=== PATIENT | female | born 1985 | race Caucasian/White ===

== ENCOUNTER 2019-01-02 12:11 | Inpatient (IN) | payer OTHER ==
[~2019-01-02] VITALS: Ht 167.6 cm; Wt 97.1 kg
[2019-01-08 06:20] VITALS: BP 107/61; Ht 167.6 cm; Wt 97.1 kg
[2019-01-08] MEDS ORDERED: PRENAVITE1 TAB PO (06:20)
[2019-01-08 07:07] LABS: HEMATOCRIT 34.4 % (36.0-48.0); HEMOGLOBIN 11.5 g/dL (12-16); MCH 30.7 pg (26.0-34.0); MCHC 33.4 g/dL (31.0-37.0); MCV 91.7 fL (80.0-100.0); MEAN PLATELET VOLUME 11.2 fL (7.4-10.4); RBC 3.75 10x6/uL (4.00-5.40); RDW 14.3 % (11.5-14.5); WBC 14.1 10x3/uL (4.8-10.8)
[2019-01-09 07:33] LABS: RAPID PLASMA REAGIN Non Reactive (Non Reactive)
== END 2019-01-08 19:31 | disposition home or self-care (01) | DRG 833 ==
LOC: D.LD 01-08 05:18
PROVIDERS: ADMIT Obstetrics & Gynecology
PROC: 3E033VJ Introduction of Other Hormone into Peripheral Vein, Percutaneous Approach (ICD-10-PCS; principal; 2019-01-08)
DX: O24.419 Gestational diabetes mellitus in pregnancy, unspecified control (principal); Z3A.39 39 weeks gestation of pregnancy; O99.333 Smoking (tobacco) complicating pregnancy, third trimester

== ENCOUNTER 2019-01-11 05:25 | Inpatient (IN) | payer OTHER ==
[~2019-01-11] VITALS: Ht 167.6 cm; Wt 97.1 kg
[2019-01-11] VITALS (10 sets, daily range): BP systolic 109–134; BP diastolic 59–83; Ht 167.6 cm; Wt 97.1 kg
[~2019-01-11 05:25] MED LIST: PRENAVITE1 TAB PO
[2019-01-11 07:09] LABS: HEMATOCRIT 34.2 % (36.0-48.0); HEMOGLOBIN 11.5 g/dL (12-16); MCH 30.7 pg (26.0-34.0); MCHC 33.6 g/dL (31.0-37.0); MCV 91.2 fL (80.0-100.0); MEAN PLATELET VOLUME 11.2 fL (7.4-10.4); RBC 3.75 10x6/uL (4.00-5.40); RDW 14.4 % (11.5-14.5); WBC 12.1 10x3/uL (4.8-10.8)
[2019-01-11 07:20] LABS: APPEARANCE CLOUDY (CLEAR); BILIRUBIN NEGATIVE (NEGATIVE); COLOR YELLOW (YELLOW); GLUCOSE NEGATIVE (NEGATIVE); KETONE NEGATIVE (NEGATIVE); NITRITE NEGATIVE (NEGATIVE); PROTEIN NEGATIVE (NEGATIVE); UROBILINOGEN NORMAL (NORMAL)
[2019-01-11 07:21] LABS: BACTERIA MODERATE /hpf (NONE SEEN); MUCUS <1+ /lpf (NONE SEEN); RED CELLS - URINE OCC /hpf (0-5)
--- NOTE | 2019-01-11 08:03 | NUR ---
TIME OF 01/11/2019 AT 0808 BABY TRANSPORTED TO NURSERY WITH FATHER AND Giuliano GALINDO RN
--- NOTE | 2019-01-11 09:00 | NUR ---
FUNDUS FIRM AND MIDLINE
--- NOTE | 2019-01-11 09:25 | NUR ---
RECEIVED PT FROM RECOVERY ROOM, TO LABOR AND DELIVERY POST SECTION BY DR. PAGE. TRANSFERRED TO #[id number] BY BED WITH ASSISTANCE FROM NAOMI FALLON. PT HAS HAD SPINAL ANESTHESIA, AND IS ABLE TO MOVE BOTH LEGS, BUT WEAKNESS NOTED TO BOTH. PT HAS SCD'S ON. LARGE WHITE DRESSING NOTED OVER SECTION INCISION, WHICH HAS 3 PENCIL EARASER SIZE, PINK DRAINAGE. ABDOMEN PALPATES SOFT, PT DENIES NAUSEA OR SOB OR DIFFICULTY BREATHING. ICE PACK PLACED OVER GOWN TO INCISION. PT ENCOURAGED TO COUGH AND DEEP BREATHE, WITH PILLOW PLACED OVER ABDOMEN FOR COMFORT. SR UP X2, CALL LIGHT AND PHONE WITHIN REACH. FAMILY CALLED TO ROOM.
--- NOTE | 2019-01-11 10:00 | NUR ---
TO PT'S ROOM, FUNDUS FIRM, U/2, SMALL RUBRA LOCHIA, NO CLOTS NOTED. PT STATES "IT FEELS LIKE I AM BLEEDING QUITE A BIT". PERICARE DONE WITH WARM WET WASHCLOTHS, DEVAUGHN TOWELS/CHUX CHANGED. PT ABLE TO FULLY MOVE AND FEEL BOTH OF HER LEGS NOW. PT DENIES ALL OTHER NEEDS. SR UP X 2, CALL LIGHT AND PHONE WITHIN REACH.
--- NOTE | 2019-01-11 10:30 | NUR ---
TO ROOM, FUNDUS FIRM, U/1, SMALL RUBRA LOCHIA, NO CLOTS. ABDOMEN PALPATES SOFT. PT DENIES NAUSEA, SOB, OR DIFFICULTY BREATHING. PT USING INCENTIVE SPIROMETER WELL, AND COUGHING AND DEEP BREATHING EXERCISES WELL. PT'S POSITION CHANGED FROM HER BACK TO HER LEFT TILT. PILLOW PLACED UNDER BACK FOR SUPPORT AND COMFORT. PT SERVED ICE WATER TO DRINK, AND DENIES ALL OTHER NEEDS AT THIS TIME.
--- NOTE | 2019-01-11 12:00 | NUR ---
PT CALLS OUT SIGNAL WORKER HELPER LIGHT AND STATES "I THINK I'M CONSTANTLY PEEING". MALLORY CATH DRAINING LIGHT YELLOW URINE, WITH TOTAL OF 600 MLS IN MALLORY BAG.
--- NOTE | 2019-01-11 15:00 | NUR ---
PT CALLS OUT CORPORATE ADMINISTRATOR LIGHT TO BE CLEANED, STATES SHE FEELS VAGINAL BLEEDING. THIS RN TO ROOM. PT STATES SHE FELT "A LOT" OF VAGINAL BLEEDING. PERIPAD CHECKED AND NOTED TO HAVE SCANT TO SMALL AMT RUBRA LOCHIA, NO CLOTS. PAD SHOWN TO PT, PT REASSURED. PERICARE DONE. NEW ICE PACK TO ABD INCISION. PT ENCOURAGED TO CONTINUE COUGH AND DEEP BREATHING, UNDERSTANDING VERBALIZED. PT DENIES FURTHER NEEDS. SRUx2, CL IN REACH. PT FAMILY AT BEDSIDE.
--- NOTE | 2019-01-11 15:30 | NUR ---
TO PT'S ROOM, PT IS LYING ON HER RIGHT SIDE, RESTING WITH EYES CLOSED, PT AWAKENS, DENIES PAIN OR NEEDS. PT DENIES NEEDING TORADOL, STATES "I REALLY LIKE THIS DILAUDID, IT IS WORKING WELL". PT DENIES ALL OTHER NEEDS AT THIS TIME. SR UP X2, CALL LIGHT AND PHONE WITHIN REACH.
--- NOTE | 2019-01-11 18:00 | NUR ---
THIS RN TO BEDSIDE. PT SITTING IN HIGH ARTEAGA'S. NO COMPLAINTS AT THIS TIME. PT QUESTIONS WHEN SHE WILL BE ABLE TO GET AND WALK. PT INFORMED ORDERS WILL HAVE TO BE OBTAINED FROM DR PAGE. PT VERBALIZES UNDERSTANDING. PT ALSO QUESTIONS WHEN SHE CAN HAVE A NICOTINE PATCH. THIS RN TO OBTAIN ORDER. APPROX 250ML NOTED IN UROMETER. TOTAL OF 800ML URINE EMPTIED FROM MALLORY. SPLINT PILLOW PROVIDED W/TEACHING. PT ENCOURAGED TO PUSH HER COMPLEX MANAGER BUTTON PRIOR TO MOVING AND CONTINUE TO REPOSITION FREQUENTLY IN BED. PT AGREEBLE. NO NEEDS VOICED AT THIS TIME.
--- NOTE | 2019-01-11 19:47 | NUR ---
ASSESSMENT PER FLOW SHEET, VS OBTAINED, IV IN RIGHT HAND INTACT WITH NO REDNESS OR EDEMA INFUSING VIA PUMP NS WITH PITOCIN AT 125 ML/HR, DILAUDID ACADEMIC SERVICES COORDINATOR TO DELIVER 0.2MG/10MINS FOR PAIN MANAGEMENT, PT RATES INC PAIN 2/10, PT INST ON AND VERBALIZES UNDERSTANDING OF ACADEMIC SERVICES COORDINATOR, FF, ML, U/1, LIGHT BLEEDING NOTED WITH NO CLOTS, PINK PAD AND BLUE CHUX CHANGED DUE TO BUNCHING UP UNDERNEATH PT, BIKINI LINE INC WITH SMALL DRESSING INTACT, DRIED DRAINAGE NOTED AND OUTLINED, MALLORY CATH INTACT DRAINING CLEAR YELLOW URINE, PT REPORTS FLATUS, SCD'S ON AND WORKING PROPERLY, FRESH ICE PACK PLACED, PT DENIES FURTHER NEEDS, FOB HOLDING BABY
--- NOTE | 2019-01-11 20:22 | NUR ---
VIC AWAD, RN SPOKE TO DR PAGE REGARDING NICOTINE PATCH FOR PT, SHE REPORTS ORDERS RECEIVED
--- NOTE | 2019-01-11 20:28 | NUR ---
NEW BAG OF PITOCIN HUNG PER MD ORDERS, SEE EMAR
--- NOTE | 2019-01-11 21:33 | NUR ---
PT BOTTLE FEEDING BABY, INFORMED PT THAT I WILL PLACE NICOTINE PATCH SOON I RECEIVE IT FROM THE PHARMACY, PT VERBALIZES UNDERSTANDING, DENIES NEEDS AT THIS TIME, FOB AT BEDSIDE
--- NOTE | 2019-01-11 22:03 | NUR ---
NICOTINE PLACED TO BACK OF UPPER LEFT SHOULDER PER MD ORDERS, PT REPORTS THAT SHE IS GOING TO GET SOME REST, INFORMED PT THAT I WILL LET HER SLEEP TILL AROUND 12:30 AM AND THAT I WILL BE IN TO DO VS AND DO DEVAUGHN CARE AT THAT TIME, PT VERBALIZES UNDERSTANDING, DENIES FURTHER NEEDS, FOB AT BEDSIDE
[2019-01-12 00:23] VITALS: BP 109/65
--- NOTE | 2019-01-12 00:23 | NUR ---
PT LABEL FOLDER LIGHT, INQUIRES ABOUT SCD'S, INFORMED PT THAT SHE HAD TO WEAR THEM TONIGHT BUT I WILL REMOVE THEM DURING VS AND DEVAUGHN CARE, SCD'S OFF, VS OBTAINED, MALLORY CATH EMPTIED, DEVAUGHN CARE DONE WITH WET WARM WASH CLOTHS, LITE BLEEDING NOTED WITH NO CLOTS, BLUE CHUX AND DEVAUGHN PAD CHANGED, FRESH ICE PACK TO ABD, PT DID COUGH DEEP BREATHE AND I.S. WITH GOOD EFFORT, PT USING FANCY PACKER INST, FRESH H20 SERVED, PT DENIES FURTHER NEEDS, SCD'S PLACED BACK ON AND WORKING PROPERLY, FOB ASLEEP ON COUCH, EARLENE CANDELARIO, NAOMI IN ROOM VISITING WITH PT
--- NOTE | 2019-01-12 02:10 | NUR ---
PT AWAKE, HOLDING BABY, DENIES NEEDS AT THIS TIME, FOB AT BEDSIDE
--- NOTE | 2019-01-12 03:00 | NUR ---
REPORT TO EARLENE CANDELARIO RN
[2019-01-12 04:15] VITALS: BP 104/56
--- NOTE | 2019-01-12 04:15 | NUR ---
NEW BAG NS WITH 20 UNITS PIT HUNG TO CONTINUE TO INFUSE AT 125 MLS/HR. I&O DONE, 1400 MLS CLEAR LIGHT YELLOW URINE EMPTIED FROM MALLORY. PERICARE DONE, PADS AND CHUX CHANGED. NEW ICE PACK PROVIDED PER REQUEST. NO NEW DRAINAGE NOTED FROM PREVIOUSLY MARKED AREA. FUNDUS FIRM, MIDLINE AND U2 WITH SCANT AMT RUBRA LOCHIA, NO CLOTS NOTED. INCENTIVE SPIROMETER USED AND COUGH DONE WITH GOOD EFFORT. PT POSITIONED TO RIGHT SIDE IN BED WITH PILLOW PLACED FOR COMFORT. ICE WATER PROVIDED PER PT REQUEST, DENIES ADDITIONAL NEEDS AT THIS TIME. TAR DISTILLATION SUPERVISOR BUTTON, CL, AND PHONE WITHIN REACH. UPPER SIDE RAILS RAISED X2, BED IN LOW POSITION. S/O RESTING ON COUCH AT BEDSIDE. WILL CONTINUE TO MONITOR AND ASSIST PRN.
--- NOTE | 2019-01-12 06:21 | NUR ---
FSBS 73, REPORTED TO DR. PAGE. C/O INCISIONAL PAIN 04/23, "FEELS LIKE A BRUISE AND SORE." REPORTS THAT RN TRAUMA DECREASES PAIN AND STOPS BURNING AND STINGING. DISCUSSED INTERVENTIONS WITH HER, REQUESTS TORADOL, GIVEN SLOW IVP. EDUCATED ON MED, VERBALIZES UNDERSTANDING AND DENIES QUESTIONS. SPOUSE REMAINS AT BEDSIDE, SUPPORTIVE AND ATTENTIVE TO PT AND HER NEEDS. BED IN LOW POSITION WITH UPPER SIDE RAILS RAISED X2. CALL LIGHT AND PHONE WITHIN REACH. WILL CONTINUE TO MONITOR AND ASSIST PRN.
[2019-01-12 06:51] LABS: BASOPHILS 0.2 % (0-2); EOSINOPHILS 1.2 % (0-7); HEMATOCRIT 31.1 % (36.0-48.0); HEMOGLOBIN 10.1 g/dL (12-16); IMMATURE GRANULOCYTES 0.2 % (0-5); LYMPHOCYTES 16.3 % (15-50); MCH 29.7 pg (26.0-34.0); MCHC 32.5 g/dL (31.0-37.0); MCV 91.5 fL (80.0-100.0); MEAN PLATELET VOLUME 10.5 fL (7.4-10.4); MONOCYTES 6.3 % (2-11); NEUTROPHILS 75.8 % (40-80); RDW 14.6 % (11.5-14.5); WBC 12.2 10x3/uL (4.8-10.8)
[2019-01-12 07:17] LABS: PLATELET COUNT 196 10x3/uL (130-400)
[2019-01-12 07:29] LABS: RAPID PLASMA REAGIN Non Reactive (Non Reactive)
[2019-01-12 08:06] VITALS: BP 107/60
--- NOTE | 2019-01-12 08:06 | NUR ---
RCVD PT FROM PM SHIFT. PT LYING ON BACK WITH HOB 25 DEGREES. PT RATES PAIN 3/10 AND TOLERABLE. DISCUSSED POC TO D/C MALLORY CATH TODAY AFTER MD MAKES ROUNDS AND NEED FOR AMBULATION AFTER THAT. PT VERBALIZED UNDERSTANDING TO TEACHING PROVIDED. PT IS AAOX3, HR-RRR, PPP, BREATH SOUNDS CLEAR AND UNLABORED X2. BOWEL SOUNDS ACTIVE X4. FUNDUS FIRM, ML, U/2. NO CLOTS EXPRESSED ON MASSAGE. LOW TRANSVERSE INCISION WITH LARGE PRIMAPORE DRESSING C/D/I WITH OLD DRAINAGE NOTED TO BE MARKED, HAS NOT INCREASED IN SIZE SINCE IT WAS MARKED. SCD'S IN PLACE BILATERALLY AND CONNECTED TO PUMP, PUMP FUNCTIONING PROPERLY. PIV NOTED TO RT HAND WITH NS WITH 20 U PITOCIN INFUSING AT 125ML/HR. DILAUDID OVERLOCK WAISTLINE JOINER IN PLACE AND PT REPORTS IT IS CONTROLLING HER PAIN WELL. PT WAS ADVANCED TO REGULAR DIET PER Jadyn GAR RN. PT DENIES ANY FURTHER NEEDS AT THIS TIME. BED LOW, WHEELS LOCKED, SIDE RAILS UP X2, CALL LIGHT AND PHONE WITHIN REACH.
--- NOTE | 2019-01-12 09:52 | NUR ---
PT CALLS OUT DIRECTOR VALIDATION LIGHT SAYING "I NEED HELP." RN TO BEDSIDE. SIXTO, CASH REGISTER MECHANIC IN ROOM TALKING WITH PT. PT STATED SHE WAS HAVING A HARD TIME POSITIONING FOR FEEDING DUE TO THE INFANT'S BROKEN CLAVICAL. SIXTO ASSISTS PT. PT DENIES FURTHER NEEDS AT THIS TIME.
--- NOTE | 2019-01-12 10:20 | NUR ---
Reyna De Santiagokellie 01/12/19 S: Patient states she just found out baby has a broken shoulder bone and she is so nervous with how she holds him. She was trying to breastfeed but plans on giving in formula because she doesn't want to hold baby in a certain way. She will try him tomorrow. O: Patient sitting up in bed feeding infant a bottle. Family members in room. Validated client concerns and request. There are ways that you can hold that won't cause more pain to his shoulder. Showed how to hold infant with different positions for . Encouraged patient to place infant skin to skin to help with baby led . This can help with infant initiation his self. Making sure infant latch is correct with every feeding will help prevent sore nipples. Educated patients on the benefits of skin to skin, breastmilk composition, positions, how to verify infant if latched is correctly to the breast, position, the importance of practicing responsive feeding, and encouraged to ask for help as needed during hospital visit with . Breastfeed does take time practice, and patience in the beginning. It is normal for infant to want to nurse often 8-12 times in 24 hours to help with establishing your milk supply. Informed patient I just wanted to give her information about and we respect how she prefers to feed today. Please ask for help as needed with help with feeding . A: Patient providing infant formula today due to injury with infant. P:Ask for help as needed with feeding infant. Julienne Song, CLC
--- NOTE | 2019-01-12 12:00 | NUR ---
Called to room, pt requesting pads changed. Susanne care per this rn with warm wet wash cloths, fundus firm at u/u with light bleeding noted. Dr Rsaheed comes to room and removes bandage from bikini incision, incision clean and dry with ross in place. Canseco cath removed by md at this time with total of 700ml clear urine noted. Pt than able to move self to sitting up on side of bed, no nausea or dizziness. AMb to bathroom and voids without complaint. pads and brief with gown changed. Bed linens changed while she is in the bathroom. Back to bed per self and able to position self for comfort tilted to her left side. Rates pain at 3/10 but states wants to eat lunch before calling for pain med. side rails up x 2 with phone and call light in reach.
--- NOTE | 2019-01-12 15:56 | NUR ---
NORCO AND MOTRIN GIVEN PER ORDERS. SEE EMAR FOR ADMINISTRATION.
--- NOTE | 2019-01-12 16:06 | NUR ---
PT AMB IN HALLS, SLIGHTLY TEARFUL. ADV PT THAT I HAVE PAIN MEDICATIONS AND GAS X TO GIVE HER. PT AMB BACK TO ROOM. NORCO 10/325MG X1 TAB AND MOTRIN 600MG X1 TAB GIVEN TOGETHER PER PT REQUEST FOR PAIN RATED 9/10 AT THIS TIME. SIMETHICONE 160MG GIVEN FOR GAS PAIN. ADV PT TO ALLOW PAIN MEDICATIONS TO TAKE EFFECT AND THEN WALKT THE HALLS TO AID IN ALLEVIATION OF GAS PAINS. PT VERBALISED UNDERSTANDING. NO FURTHER NEEDS VOICED.
--- NOTE | 2019-01-12 16:21 | NUR ---
PT AMB IN HALLS. STEADY GAIT NOTED. PT STATES "I GOT A BUZZ OF ENERGY AND JUST DECIDED TO WALK." ADV PT SHE CAN AMB IN HALLS AND WAITING ROOM, BUT NOT TO WALK INTO THE HOSPITAL HALLWAYS. PT VERLBALIZED UNDERSTANDING.
--- NOTE | 2019-01-12 17:38 | NUR ---
PT AMB TO NURSE DESK. STEADY GAIT NOTED. PT REQUESTS SL BE D/C'D STATING "IT'S HURTING PRETTY BAD." SL D/C'D WITH CATH TIP INTACT. PRESSURE APPLIED TO SITE UNTIL BLEEDING SUBSIDED. BANDAID PLACED OVER SITE. PT TOLERATED WELL. NO FURTHER NEEDS VOICED AT THIS TIME.
--- NOTE | 2019-01-12 18:25 | NUR ---
PT AMB TO NURSE DESK REQUESTING TO TAKE A SHOWER. RN TO BEDSIDE. TOWELS AND WASH CLOTHS PROVIDED. ADV PT TO USE SHOWER CHAIR NEEDED. PT IS AGREEABLE AND DENIES FURTHER NEEDS.
--- NOTE | 2019-01-12 18:42 | NUR ---
DEVAUGHN PADS PROVIDED, PT OUT OF SHOWER AND DRESSING, DENIES NEEDS AT THIS TIME.
[2019-01-12 19:29] VITALS: BP 109/73
--- NOTE | 2019-01-12 19:29 | NUR ---
SHIFT ASSESSMENT COMPLETED. PT REC'D SITTING UP IN CHAIR IN ROOM CONVERSING WITH VISITORS. PAIN 4/10 INCISIONAL BURNING AND STINGING, "SORENESS," AND ABD CRAMPING INTERMITTENTLY. DENIES NEED FOR INTERVENTION CURRENTLY. STEAY GAIT NOTED BACK TO BED. VSS. RESPIRATIONS REGULAR AND UNLABORED, BREATH SOUNDS CLEAR AND EQUAL BILATERALLY. BOWEL SOUNDS PRESENT AND ACTIVE X4, REPORTS THAT SHE BEGAN PASSING FLATUS FOLLOWING RECEIVING SIMETHICONE TABS EARILER ON DAY SHIFT. REPORTS VOIDING WITHOUT DIFFICULTY AND DENIES PASSING CLOTS. FUNDUS FIRM, MIDLINE AND U2 WITH SCANT RUBRA LOCHIA, NO CLOTS NOTED. SCD'S LEFT OFF PER PT REQUEST, STATES THAT SHE WANTS TO CONTINUE AMBULATING IN ROOM AND ON UNIT. LOWER TRANSVERSE ABD INCISION WELL APPROXIMATED WITH 18 ILSA INTACT, NO DRAINAGE OR S/S OF INFECTION NOTED. PERIPAD PLACED OVER INCISION AND PT INSTRUCTED ON S/S OF INFECTION AND INCISIONAL CARE, VERBALIZES UNDERSTANDING. BED IN LOW POSITION WITH UPPER SIDE RAILS RAISED X2. CALL LIGHT AND PHONE WITHIN REACH. WILL CONTINUE TO MONITOR AND ASSIST PRN.
--- NOTE | 2019-01-12 20:20 | NUR ---
C/O ABD CRAMPING AND INCISIONAL BURNING AND STINGING 03/23, REQUESTS NORCO, GIVEN PER REQUEST. REFUSED NICOTINE PATCH AT THIS TIME. REPORTS THAT SHE FEELS "GAS PAIN BUILDING AGAIN" AND REQUESTS SIMETHICONE, GIVEN PER REQUEST. REINFORCED FALL PREVENTION WITH PT AND SPOUSE AND KEEPING SOMEONE IN ROOM WHILE TAKING NARCOTICS TO ASSIST WITH PRN, VERBALIZES UNDERSTANDING AND DENIES QUESTIONS. ICE WATER PROVIDED. BED IN LOW POSITION WITH UPPER SIDE RAILS RAISED X2. CALL LIGHT AND PHONE WITHIN REACH. WILL CONTINUE TO MONITOR AND ASSIST PRN.
--- NOTE | 2019-01-12 20:47 | NUR ---
AMBULATORY IN [place] WITH FAMILY MEMBER. STEADY GAIT NOTED. DENIES DIZZINESS AND NEEDS.
--- NOTE | 2019-01-12 21:16 | NUR ---
NICOTINE PATCH APPLIED TO RIGHT UPPER ARM PER PT REQUEST. INITIALLY REFUSED PATCH, BUT STATES THAT SHE WOULD LIKE IT APPLIED NOW. PT EDUCATED ABOUT PATCH AND POSSIBLE SIDE EFFECTS, VERBALIZES UNDERSTANDING AND DENIES QUESTIONS. BED IN LOW POSITION WITH UPPER SIDE RAILS RAISED X2. BONDING WITH . DENIES NEEDS. PAIN CURRENTLY 2/10. WILL CONTINUE TO MONITOR AND ASSIST PRN.
--- NOTE | 2019-01-12 22:11 | NUR ---
C/O ABD CRAMPING, 01/21. REQUEST MOTRIN, GIVEN PER REQUEST AND ORDER. ICE WATER PROVIDED. DENIES ADDITIONAL NEEDS AT THIS TIME. SPOUSE AT BEDSIDE, SUPPORTIVE AND ATTENTIVE TO PT AND INFANT NEEDS. BED IN LOW POSITION WITH UPPER SIDE RAILS RAISED X2. CALL LIGHT AND PHONE WITHIN REACH. WILL CONTINUE TO MONITOR AND ASSIST PRN.
--- NOTE | 2019-01-12 23:00 | NUR ---
AMBULATORY IN [place], PAIN 1-12/24, DENIES NEED FOR ADDITIONAL INTERVENTION. STATES THAT PAIN IS DECREASED ONCE SHE IS UP AMBULATING. DENIES NEED. WILL CONTINUE TO MONITOR AND ASSIST PRN.
[2019-01-12 23:56] VITALS: BP 116/60
--- NOTE | 2019-01-12 23:56 | NUR ---
C/O PAIN 5/10 INCISIONAL BURNING AND STINGING. NORCO GIVEN PER ORDER. QUESTIONS REGARDING INCISIONAL CARE AND S/S OF INFECTION ANSWERED. VSS. FUNDUS REMAINS FIRM, MIDLINE AND U2 WITH SCANT AMT RUBRA LOCHIA, NO CLOTS NOTED. REQUEST SIMETHICONE, GIVEN PER REQUEST. ICE WATER PROVIDED. BED IN LOW POSITION WITH UPPER SIDE RAILS RAISED X2. CALL LIGHT AND PHONE WITHIN REACH. WILL CONTINUE TO MONITOR AND ASSIST PRN.
--- NOTE | 2019-01-13 00:58 | NUR ---
RESTING WITH EYES CLOSED IN SEMI FOWLERS POSITION. RESPIRATIONS REGULAR AND UNLABORED, NO S/S OF DISTRESS NOTED. BED IN LOW POSITION WITH UPPER SIDE RAILS RAISED X2. CALL LIGHT AND PHONE WITHIN REACH. WILL CONTINUE TO MONITOR AND ASSIST PRN.
--- NOTE | 2019-01-13 02:24 | NUR ---
ROUNDS MADE. PT RESTING ON RIGHT SIDE WITH EYES CLOSED. RESPIRATIONS REGULAR AND UNLABORED WITH NO S/S OF DISTRESS NOTED. BED IN LOW POSITION WITH UPPER SIDE RAILS RAISED X2. CL AND PHONE WITHIN REACH.
--- NOTE | 2019-01-13 04:16 | NUR ---
VSS. 05/23 INCISIONAL BURNING, STINGING, AND "SORENESS." MOTRIN AND NORCO GIVEN PER REQUEST. FUNDUS REMAINS FIRM, MIDLINE AND U2 WITH SCANT RUBRA LOCHIA, NO CLOTS NOTED. ICE WATER PROVIDED. DENIES ADDITIONAL NEEDS. UP TO VOID. BED IN LOW POSITION WITH UPPER SIDE RAILS RAISED X2. CALL LIGHT AND PHONE WITHIN REACH. WILL CONTINUE TO MONITOR AND ASSIST PRN.
[2019-01-13 04:26] VITALS: BP 115/64
--- NOTE | 2019-01-13 05:03 | NUR ---
PAIN REASSESSMENT COMPLETED, 01/21. CURRENTLY BONDING WITH INFANT. ICE WATER PROVIDED. DENIES ADDITIONAL NEEDS. BED IN LOW POSITION WITH UPPER SIDE RAILS RAISED X2. CALL LIGHT AND PHONE WITHIN REACH.
--- NOTE | 2019-01-13 06:36 | NUR ---
ROUNDS MADE. PT BONDING WITH . DENIES NEEDS AT THIS TIME. SPOUSE AT BEDSIDE SUPPORTIVE AND ATTENTIVE TO PT AND HER NEEDS. BED IN LOW POSITION WITH UPPER SIDE RAILS RAISED X2. CALL LIGHT AND PHONE WITHIN REACH.
--- NOTE | 2019-01-13 07:30 | NUR ---
DR PAGE ON UNIT, RECEIVED VERBAL ORDER THAT PT MAY DISCHARGE WITH BABY.
[2019-01-13 08:00] VITALS: BP 119/66
--- NOTE | 2019-01-13 08:05 | NUR ---
PT IN HIGH FOWLERS POSITION HOLDING INFANT. PHYSICAL ASSESSMENT DONE, SEE SHIFT ASSESSMENT. FUNDUS FIRM AND MIDLINE. 2/U. LIGHT RUBRA LOCHIA. PT DENIES HEAVY BLEEDING OR PASSING CLOTS THROUGHOUT THE NIGHT. PFANNENSTIEL INCISION NOTED TO BE CLEAN DRY AND INTACT WITH ILSA. NO REDNESS, SWELLING OR WARMTH NOTED. BOWEL SOUNDS HYPERACTIVE X 4, ABD DISTENDED BUT SOFT TO TOUCH. PT REPORT TENDERNESS AND PASSING GAS MULTIPLE TIMES SINCE PROCEDURE. DISCUSSED AMBULATION, OPIOD EFFECTS ON GI SYSTEM, AND SIMETHICONE.
--- NOTE | 2019-01-13 08:15 | NUR ---
NORCO 10/325MG GIVEN PO PER PT REQUEST FOR PAIN. PT DENIES FURTHER NEEDS AT THIS TIME.
--- NOTE | 2019-01-13 09:00 | NUR ---
PT IN HIGH FOWLERS POSITION. PT DENIES PAIN BUT REPORTS "SWELLING AND WEIRD SENSATIONS" OF THE LEFT HAND, SPECIFICALLY THE AREA BETWEEN THE THUMB AND FIRST FINGER. AREA APPEARS SLIGHTLY REDDENED AND NOT WARM TO TOUCH. AREA OUTLINED AND WILL CONTINUE TO MONITOR.
--- NOTE | 2019-01-13 10:00 | NUR ---
DR TAYLOR ON UNIT AND TO PT ROOM TO ASSESS LEFT HAND. STATES THAT "IT DOES NOT LOOK INFECTIOUS". PT CONTINUES TO DENY ANY ITCHING AT SITE. PT DENIES PAIN OR FURTHER NEEDS AT THIS TIME.
[2019-01-13] MEDS ORDERED: HYDROCODON-ACE1 EA10 PO (10:33)
[2019-01-13] MEDS ORDERED: IBUPROFEN600 MG PO (10:34)
--- NOTE | 2019-01-13 11:00 | NUR ---
PT AMBULATING IN HALLWAY, DENIES PAIN OR NEEDS.
--- NOTE | 2019-01-13 11:55 | NUR ---
PT SITTING UP ON COUCH HOLDING ICE PACK TO LEFT HAND. AREA BETWEEN THUMB AND FIRST FINGER IS MORE RED AND MORE SWOLLEN THAN THIS AM. PT CONTINUES TO DENY PAIN OR ITCHING AT SITE. AREA FEELS THICKENED. LINENS CHANGED. TDAP VACCINE, RHOGAM INJECTIONS GIVEN, SEE EMAR. MOTRIN 600MG AND SIMETHICONE 120MG GIVEN PO FOR PAIN RATED 5/10 AT INCISION SITE AND CRAMPING. WRITTEN AND VERBAL DC INSTRUCTIONS GIVEN ALONG WITH PRESCRIPTIONS FOR MOTRIN AND NORCO 10/325MG. PT AND FOB VERBALIZE UNDERSTANDING OF ALL INSTRUCTIONS. ANSWERED QUESTIONS AT THIS TIME. PT REQUESTS BENADRYL FOR HAND AND NORCO FOR PAIN.
--- NOTE | 2019-01-13 12:25 | NUR ---
REPORT OF HAND SWELLING CALLED TO DR TAYLOR. ORDER RECEIVED TO GIVE BENADRYL 50MG PO AND TO PROCEED WITH DC.
--- NOTE | 2019-01-13 12:40 | NUR ---
NORCO 10/325MG AND BENADRYL 50MG GIVEN PO FOR PT RATING PAIN 5/10.
--- NOTE | 2019-01-13 13:30 | NUR ---
PT AMBULATING AROUND ROOM. PT RATES PAIN 2/10 AND REPORTS FEELING DROWSY. IN CRIB RESTING QUIETLY. PT DENIES FURTHER NEEDS AT THIS TIME.
--- NOTE | 2019-01-13 15:25 | NUR ---
REDNESS AND SWELLING MOSTLY GONE ON LEFT HAND. BB SIZE AREA BETWEEN THUMB AND FIRST FINGER REDDENED; BLOOD ACCUMULATING UNDER SKIN APPEARANCE, PT CONTINUES TO DENY ITCHING OR PAIN AT SITE. PT VERBALIZES READINESS FOR DISCHARGE. PT OFF UNIT VIA WHEELCHAIR TO PRIVATE VEHICLE. IN CARSEAT. FAMILY DENIES FURTHER QUESTIONS AT THIS TIME,
--- NOTE | 2019-01-15 13:48 | MORECARE ---
CASE MANAGEMENT DISCHARGE SUMMARY PATIENT: ISADORA VUONG UNIT: [id number] ADM DATE: 01/11/19 AGE: 33 : 85 SEX: F ROOM/BED: D.1278 AUTHOR: JOSE RAUL REYEZ PHYSICIAN: REFERRING PHYSICIAN: ALAN PAGE MD DATE OF SERVICE: 01/15/19 Discharge Plan Patient Name: ISADORA VUONG Facility: [facility]:[place] : 1985 Planned Disposition: Home Anticipated Discharge Date: 01/13/19 Discharge Date: 01/13/2019 Expected LOS: 2 Initial Reviewer: [email or web address] Initial Review Date: 01/11/2019 Generated: 01/15/19 2:48 pm Patient Name: ISADORA VUONG Page [id number] at 1348 All edits/amendments must be made on the electronic document DICTATION DATE: 01/15/19 1347 RN OCCUPATIONAL HEALTH: LATRELL 01/15/19 1347 RPT#: [id number] DC DATE:01/13/19 STATUS: DIS IN [facility] [address] [place] [address] END OF REPORT
== END 2019-01-13 15:30 | disposition home or self-care (01) | DRG 788 ==
LOC: D.LD 05:25 → D.SDCHOLD 07:30 → D.LD 01-13 15:30
PROVIDERS: ADMIT Obstetrics & Gynecology; ATTEND Obstetrics & Gynecology
PROC: 10D00Z1 Extraction of Products of Conception, Low, Open Approach (ICD-10-PCS; principal; 2019-01-11 07:30)
DX: O24.429 Gestational diabetes mellitus in childbirth, unspecified control (principal); Z3A.39 39 weeks gestation of pregnancy; Z37.0 Single live birth; O61.0 Failed medical induction of labor

== ENCOUNTER 2020-07-22 09:49 | Emergency (ER) | payer OTHER ==
[~2020-07-22] VITALS: Ht 167.6 cm; Wt 86.4 kg
[~2020-07-22 09:49] MED LIST changes: +HYDROCODON-ACE1 EA10 PO; +IBUPROFEN600 MG PO
[2020-07-22 10:10] VITALS: Ht 167.6 cm; Wt 86.4 kg
[2020-07-22] MEDS ORDERED: MULTI-DAY VITAM1 TAB PO (10:13)
[2020-07-22 10:43] LABS: BASOPHILS 0.3 % (0-2); EOSINOPHILS 2.4 % (0-7); HEMATOCRIT 41.4 % (36.0-48.0); HEMOGLOBIN 13.5 g/dL (12-16); IMMATURE GRANULOCYTES 0.3 % (0-5); LYMPHOCYTES 25.5 % (15-50); MCH 29.1 pg (26.0-34.0); MCHC 32.6 g/dL (31.0-37.0); MCV 89.2 fL (80.0-100.0); MEAN PLATELET VOLUME 9.6 fL (7.4-10.4); MONOCYTES 8.3 % (2-11); NEUTROPHILS 63.2 % (40-80); RBC 4.64 10x6/uL (4.00-5.40); RDW 14.5 % (11.5-14.5); WBC 11.4 10x3/uL (4.8-10.8)
[2020-07-22 10:54] LABS: CALC OSMOLALITY 277 mosm/kg (275-300); CALCIUM 8.9 mg/dL (8.5-10.1); CARBON DIOXIDE 23.7 mmol/L (21.0-32.0); CHLORIDE - SERUM 106 mmol/L (98-107); CREATININE - SERUM 0.7 mg/dL (0.6-1.3); GLUCOSE 104 mg/dL (74-106); POTASSIUM - SERUM 3.7 mmol/L (3.5-5.1); SODIUM 141 mmol/L (136-145); UREA NITROGEN 5 mg/dL (7-18); eGFR NON AFRICAN AMERICAN > 90 mL/min (90-120)
[2020-07-22 10:59] LABS: PLATELET COUNT 439 10x3/uL (130-400)
[2020-07-22 11:04] LABS: HCG SERUM POSITIVE (NEGATIVE)
[2020-07-22 11:05] LABS: ALBUMIN 3.8 g/dL (3.4-5.0); ALKALINE PHOSPHATASE 82 U/L (30-120); ALT (SGPT) 23 U/L (10-68); BILIRUBIN - TOTAL 0.25 mg/dL (0.2-1.3); HCG - QUANTITATIVE (MATERNAL) 48 mIU/mL; PROTEIN - SERUM 7.7 g/dL (6.4-8.2)
[2020-07-22 11:14] LABS: BILIRUBIN NEGATIVE (NEGATIVE); KETONE NEGATIVE (NEGATIVE); NITRITE NEGATIVE (NEGATIVE); UROBILINOGEN NORMAL (NORMAL)
[2020-07-22 11:19] LABS: BACTERIA FEW /hpf (NONE SEEN); EPITHELIAL CELLS 0-5 /hpf (0-5); RED CELLS - URINE 0-5 /hpf (0-5); WHITE CELLS - URINE 0-5 /hpf (0-5)
[2020-07-22 12:47] VITALS: BP 178/88
== END 2020-07-22 12:47 | disposition home or self-care (01) ==
LOC: D.ER 09:49
PROVIDERS: Emergency Medicine
DX: O20.0 Threatened abortion (principal); D72.829 Elevated white blood cell count, unspecified; N88.8 Other specified noninflammatory disorders of cervix uteri